=== PATIENT | male | born 1960 | race Caucasian/White ===

== ENCOUNTER 2016-07-22 12:13 | Outpatient (CLI) | payer OTHER ==
[2016-07-22 13:40] LABS: ALT (SGPT) 17 U/L (0-55); AST (SGOT) 25 U/L (5-34); Albumin 4.4 g/dL (3.5-5.0); Alkaline Phosphatase 59 U/L (40-150); Anion Gap 15 mmol/L (10-20); BUN (Urea Nitrogen) 11 mg/dL (8.4-25.7); Bilirubin, Direct 0.3 mg/dL (0.1-0.3); Calc. Creatinine Clearance 0 mL/min (70-130); Calcium 9.5 mg/dL (7.8-10.44); Carbon Dioxide 26 mmol/L (22-29); Chloride 95 mmol/L (98-107); Estimated GFR-MDRD 88; Glucose 94 mg/dL (70-105); Potassium 4.4 mmol/L (3.5-5.1); Protein, Total 7.9 g/dL (6.0-8.3); Sodium 132 mmol/L (136-145)
[2016-07-22 14:15] LABS: Hemoglobin A1c 5.4 % (4.0-6.0)
[2016-07-22 15:40] LABS: Band 1 % (5-11); Eosinophils 2 % (0-10); Hemoglobin 15.9 g/dL (14.0-18.0); Lymphocytes 25 % (21-51); MDiff Complete? YES; Mean Corpuscular HGB CONC 35.2 g/dL (32.0-36.0); Mean Corpuscular Hemoglobin 34.3 pg (27.0-31.0); Mean Corpuscular Volume 97.4 fl (80.0-94.0); Mean Platelet Volume 5.9 fL (7.4-10.4); Monocytes 26 % (0-10); Neutrophil 45 % (42-75); Platelet Count 334 thou/uL (130-400); RBC Distribution Width 9.9 % (11.5-14.5); RBC Morphology Normal; Red Blood Cell (RBC) Count 4.64 mill/uL (4.70-6.10); White Blood Cell (WBC) Count 3.5 thou/uL (4.8-10.8)
[2016-07-23 09:24] LABS: Cardiac Risk 3.8 (Less than 4.5); Cholesterol 200 mg/dL (< 200 Desired); HDL Cholesterol 52 mg/dL (>60 Neg Risk); LDL Cholesterol, Calculated 129 mg/dL; Triglycerides 94 mg/dL (Less than 150)
== END 2016-07-22 12:14 | disposition home or self-care (01) ==
LOC: NAVSJIPCSP 12:13
PROVIDERS: ATTEND Family Medicine
DX: E78.00 Pure hypercholesterolemia, unspecified (principal); I10 Essential (primary) hypertension; M86.9 Osteomyelitis, unspecified; N07.0 Hereditary nephropathy, not elsewhere classified with minor glomerular abnormality; L93.1 Subacute cutaneous lupus erythematosus; G47.00 Insomnia, unspecified; R74.8 Abnormal levels of other serum enzymes; Z79.899 Other long term (current) drug therapy
CPT/HCPCS: 36415; 80048; 80061; 80076; 83036; 84443; 85025

== ENCOUNTER 2016-11-19 10:58 | Outpatient (CLI) | payer OTHER | END 2016-11-19 10:59 | disposition home or self-care (01) | LOC: NAV LABSP 10:58 | PROVIDERS: ATTEND Family Medicine | DX: N52.9 Male erectile dysfunction, unspecified (principal) | CPT/HCPCS: 36415; 84403 ==

== ENCOUNTER 2017-01-17 08:41 | Outpatient (CLI) | payer OTHER ==
[2017-01-17 12:47] LABS: ALT (SGPT) 39 U/L (8-55); AST (SGOT) 52 U/L (5-34); Albumin 4.4 g/dL (3.5-5.0); Alkaline Phosphatase 55 U/L (40-150); Anion Gap 14 mmol/L (10-20); BUN (Urea Nitrogen) 11 mg/dL (8.4-25.7); Bilirubin, Direct 0.5 mg/dL (0.1-0.3); Bilirubin, Total 1.6 mg/dL (0.2-1.2); Calc. Creatinine Clearance 0 mL/min (70-130); Calcium 9.7 mg/dL (7.8-10.44); Carbon Dioxide 24 mmol/L (22-29); Cardiac Risk 4.3 (Less than 4.5); Chloride 96 mmol/L (98-107); Cholesterol 200 mg/dl (< 200 Desired); Estimated GFR-MDRD Greater than 90; Glucose 89 mg/dL (70-105); HDL Cholesterol 47 mg/dL (>60 Neg Risk); LDL Cholesterol, Calculated 138 mg/dL; Potassium 4.4 mmol/L (3.5-5.1); Protein, Total 8.2 g/dL (6.0-8.3); Sodium 130 mmol/L (136-145); Triglycerides 73 mg/dL (Less than 150)
[2017-01-17 13:49] LABS: Band 1 % (5-11); Eosinophils 1 % (0-10); Lymphocytes 28 % (21-51); MDiff Complete? YES; Mean Corpuscular HGB CONC 34.5 g/dL (32.0-36.0); Mean Corpuscular Hemoglobin 33.1 pg (27.0-31.0); Mean Corpuscular Volume 96.2 fl (80.0-94.0); Mean Platelet Volume 5.7 fL (7.4-10.4); Monocytes 25 % (0-10); PLT Morphology Comment Appears Adequate; Platelet Count 319 thou/uL (130-400); RBC Distribution Width 9.9 % (11.5-14.5); Red Blood Cell (RBC) Count 4.52 mill/uL (4.70-6.10); White Blood Cell (WBC) Count 3.5 thou/uL (4.8-10.8)
[2017-01-17 13:50] LABS: Neutrophil 45 % (42-75)
== END 2017-01-17 08:42 | disposition home or self-care (01) ==
LOC: NAVSJIPCSP 08:41
PROVIDERS: ATTEND Family Medicine
DX: G47.00 Insomnia, unspecified (principal); B07.0 Plantar wart; E78.00 Pure hypercholesterolemia, unspecified; I10 Essential (primary) hypertension; Z79.899 Other long term (current) drug therapy
CPT/HCPCS: 36415; 80048; 80061; 80076; 83036; 84443; 85025

== ENCOUNTER 2021-04-24 18:00 | Emergency (ER) | payer OTHER ==
[2021-04-24] MEDS ORDERED: Sodium Chloride 0.9% 1,000 ML ONE ×2 (18:25→19:11)
[2021-04-24 18:30] LABS: Hemoglobin 13.3 g/dL (14.0-18.0); Mean Corpuscular HGB CONC 35.1 g/dL (32.0-36.0); Mean Corpuscular Hemoglobin 33.1 pg (27.0-31.0); Mean Corpuscular Volume 94.3 fL (78.0-98.0); Mean Platelet Volume 5.7 fL (7.4-10.4); Platelet Count 499 thou/uL (130-400); RBC Distribution Width 10.1 % (11.5-14.5); Red Blood Cell (RBC) Count 4.01 mill/uL (4.70-6.10); White Blood Cell (WBC) Count 15.6 thou/uL (4.8-10.8)
[2021-04-24 18:42] LABS: Band 2 % (5-11); Lymphocytes 5 % (21-51); MDiff Complete? YES; Manual Diff?? YES; Neutrophil 74 % (42-75)
[2021-04-24 18:43] LABS: Monocytes 19 % (0-10); Platelet Morphology Comment Appears Adequate; RBC Morphology Normal
[2021-04-24 18:47] LABS: ALT (SGPT) 13 U/L (8-55); AST (SGOT) 23 U/L (5-34); Albumin 3.3 g/dL (3.5-5.0); Alkaline Phosphatase 48 U/L (40-110); Anion Gap 13 mmol/L (10-20); BUN (Urea Nitrogen) 16 mg/dL (8.4-25.7); Bilirubin, Total 2.2 mg/dL (0.2-1.2); Calc. Creatinine Clearance 0 mL/min (70-130); Calcium 8.4 mg/dL (7.8-10.44); Carbon Dioxide 24 mmol/L (22-29); Chloride 80 mmol/L (98-107); Glucose 107 mg/dL (70-105); Lipase 93 U/L (8-78); Potassium 3.5 mmol/L (3.5-5.1); Protein, Total 7.3 g/dL (6.0-8.3)
[2021-04-24 18:52] LABS: Sodium 113 mmol/L (136-145)
[2021-04-24 19:48] LABS: Bilirubin Negative (Negative); Blood, Urine Negative (Negative); Clarity Clear (Clear); Glucose, Urine (Dipstick) Negative (Negative); Ketone, Urine Negative (Negative); Leukocyte Negative (Negative); Nitrite Negative (Negative); Protein, Urine (Dipstick) Negative (Neg-Trace); Urobilinogen 0.2 mg/dL (Less than 2)
[2021-04-24 20:01] LABS: Anion Gap 15 mmol/L (10-20); BUN (Urea Nitrogen) 15 mg/dL (8.4-25.7); Calc. Creatinine Clearance 0 mL/min (70-130); Calcium 8.2 mg/dL (7.8-10.44); Carbon Dioxide 21 mmol/L (22-29); Chloride 83 mmol/L (98-107); Glucose 106 mg/dL (70-105); Potassium 3.3 mmol/L (3.5-5.1)
[2021-04-24 20:06] LABS: Sodium 116 mmol/L (136-145)
[2021-04-24 20:11] LABS: Critical Call Chemistry Y
[2021-04-24] MEDS ORDERED: Potassium Chloride 20 MEQ/100 ML PREMIX BAG ONE (22:09)
[2021-04-24] MEDS ORDERED: NS 0.9% w/ 20 MEQ KCL 1,000 ML IV SCH (22:30)
== END 2021-04-24 22:47 | disposition short-term general hospital (02) ==
LOC: NAV ERS 18:00
DX: E87.1 Hypo-osmolality and hyponatremia (principal); R19.7 Diarrhea, unspecified; I10 Essential (primary) hypertension; Z79.899 Other long term (current) drug therapy
CPT/HCPCS: 80053; 81003; 82274; 83630; 83690; 85025; 87045; 87046; 87081; 87427; 87449; 96374; J3480; J7050